=== PATIENT | male | born 1955 | race Caucasian/White ===

== ENCOUNTER → 2016-10-11 | Outpatient (REF) ==
[~2016-10-11] MED LIST: CASODEX 50MG TA50 MG PO; COLACE 100100 MG/CAP PO; FLEXERIL 1010 MG/TAB PO; NORCO 325 MG-51 TAB PO
== END ==
LOC: ZLAB.WCH 12:05
DX: Z01.89 Encounter for other specified special examinations (principal)
CPT/HCPCS: G0103

== ENCOUNTER → 2016-10-28 | Outpatient (CLI) | payer MEDICAID, OTHER | LOC: COL.RAD 09:08 | DX: C61 Malignant neoplasm of prostate (principal); R59.0 Localized enlarged lymph nodes; C79.51 Secondary malignant neoplasm of bone | CPT/HCPCS: A9503; Q9967 ==

== ENCOUNTER 2016-11-13 12:42 | Day surgery (SDC) | payer MEDICAID ==
[~2016-11-13] VITALS: Ht 172.7 cm; Wt 57.0 kg
[2016-11-13] MEDS ORDERED: FLEXERIL 1010 MG/TAB PO (13:20)
[2016-11-13] MEDS ORDERED: CASODEX 50MG TA50 MG PO (13:21)
[2016-11-13] MEDS ORDERED: NORCO 325 MG-51 TAB PO (13:22)
[2016-11-13 13:46] VITALS: BP 143/95; PULSE 91; TEMP 97.7
[2016-11-13 15:55] VITALS: BP 125/82; PULSE 88; TEMP 98.5
[2016-11-13] MEDS ORDERED: COLACE 100100 MG/CAP PO (15:59)
[2016-11-13 16:05] VITALS: BP 137/83; PULSE 76
[2016-11-13 16:20] VITALS: BP 152/84; PULSE 75
== END 2016-11-13 16:50 | disposition home or self-care (01) ==
LOC: SDCO 12:42
DX: C61 Malignant neoplasm of prostate (principal); C79.89 Secondary malignant neoplasm of other specified sites; C79.51 Secondary malignant neoplasm of bone; R39.12 Poor urinary stream; R39.16 Straining to void; J44.9 Chronic obstructive pulmonary disease, unspecified; Z80.0 Family history of malignant neoplasm of digestive organs; Z80.7 Family history of other malignant neoplasms of lymphoid, hematopoietic and related tissues; R20.0 Anesthesia of skin; R63.4 Abnormal weight loss; Z68.1 Body mass index [BMI] 19.9 or less, adult; F17.290 Nicotine dependence, other tobacco product, uncomplicated
CPT/HCPCS: J1100; J1885; J2270; J2405; J2704; J3010; J7030

== ENCOUNTER → 2017-01-06 | Outpatient (REF) | LOC: ZLAB.WCH 18:04 | DX: Z01.89 Encounter for other specified special examinations (principal) | CPT/HCPCS: G0103 ==

== ENCOUNTER → 2017-02-10 | Outpatient (REF) | LOC: ZLAB.WCH 20:25 | DX: Z01.89 Encounter for other specified special examinations (principal) | CPT/HCPCS: G0103 ==

== ENCOUNTER 2017-06-17 11:00 | Emergency (ER) | payer MEDICAID ==
[~2017-06-17] VITALS: Ht 170.2 cm; Wt 59.1 kg
[2017-06-17 11:06] VITALS: TEMP 97.8
[2017-06-17 11:28] LABS: MEAN CELL VOLUME 92 fl (80.0-100.0); MEAN CORPUSCULAR HGB CONC 34 g/dl (33.0-37.0); PLATELET COUNT 277 K/mm3 (130-400); RED BLOOD COUNT 3.59 M/mm3 (4.20-5.60); REDCELL DISTRIBUTION WIDTH-CV 13.4 % (11.5-14.5)
[2017-06-17] MEDS ORDERED: ASPIRIN 32325 MG/TAB PO (11:29)
[2017-06-17] MEDS ORDERED: ZOFRAN 4MG T4 MG/TAB PO (11:29)
[2017-06-17 11:42] LABS: HEMATOCRIT 33.1 % (42.0-52.0); HEMOGLOBIN 11.2 g/dl (13.5-18.0); MEAN CORPUSCULAR HEMOGLOBIN 31 pg (27.0-31.0)
[2017-06-17 11:50] LABS: ALBUMIN 3.7 gm/dL (3.5-5.0); BILIRUBIN,TOTAL 0.5 mg/dL (0.0-1.0); CALCIUM 8.9 mg/dL (8.4-10.2); CREATININE, serum 0.63 mg/dL (0.66-1.25); MAGNESIUM 2.1 mg/dL (1.6-2.3); PHOSPHOROUS 2.3 mg/dL (2.5-4.5); POTASSIUM 4.3 mmol/L (3.4-5.0); TOTAL PROTEIN 7.1 gm/dL (6.4-8.2)
[2017-06-17 12:02] LABS: BAND 11 % (0-10); EOSINOPHIL 3 % (0-4); LYMPHOCYTE 15 % (20.0-51.0); MYELOCYTE 1 % (0-0); NEUTROPHILS 65 % (42.0-75.2)
[2017-06-17 12:03] LABS: PLATELET ESTIMATE NORMAL (NORMAL); POLYCHROMASIA 1+; STOMATOCYTE 1+
[2017-06-17 13:34] LABS: COLLECTION METHOD CLEAN CATCH
[2017-06-17 13:43] LABS: PH 7 (5-8); SQUAMOUS EPITHELIAL 0-2 /hpf; URINE APPEARANCE Clear; URINE BACTERIA None Seen /hpf; URINE BILIRUBIN Negative (NEGATIVE); URINE BLOOD Negative (NEGATIVE); URINE COLOR Yellow; URINE GLUCOSE Negative (NEGATIVE); URINE KETONE 1+ (NEGATIVE); URINE LEUKOCYTE ESTERASE Negative (NEGATIVE); URINE NITRATE Negative (NEGATIVE); URINE PROTEIN(semi-quant) Negative (NEGATIVE); URINE RBC 0-2 /hpf
[2017-06-17] MEDS ORDERED: LEVAQUIN 5500 MG/TA1 PO (15:44)
[2017-06-17] MEDS ORDERED: ZOFRAN ODT4 MG PO (15:45)
[2017-06-17] MEDS ORDERED: PERCOCET 325 MG1 TA3 PO (15:45)
[2017-06-17 16:03] VITALS: BP 123/76; PULSE 106
== END 2017-06-17 16:05 | disposition home or self-care (01) ==
LOC: COL.ER 11:00
PROVIDERS: Emergency Medicine
DX: C61 Malignant neoplasm of prostate (principal); C79.51 Secondary malignant neoplasm of bone; F17.210 Nicotine dependence, cigarettes, uncomplicated; Z79.82 Long term (current) use of aspirin
CPT/HCPCS: J1170; J7030; Q9967

== ENCOUNTER → 2017-07-21 | Outpatient (CLI) | payer MEDICAID ==
[~2017-07-21] MED LIST changes: +ASPIRIN 32325 MG/TAB PO; +LEVAQUIN 5500 MG/TA1 PO; +PERCOCET 325 MG1 TA3 PO; +ZOFRAN 4MG T4 MG/TAB PO; +ZOFRAN ODT4 MG PO
== END ==
LOC: COL.RAD 09:23
DX: C79.51 Secondary malignant neoplasm of bone (principal); C61 Malignant neoplasm of prostate; R59.1 Generalized enlarged lymph nodes
CPT/HCPCS: A9503; Q9967

== ENCOUNTER 2017-08-01 11:56 | Outpatient (RCR) | payer MEDICAID ==
[2017-08-01] VITALS (7 sets, daily range): BP systolic 100–111; BP diastolic 60–71; PULSE 83–105; TEMP 97.8
[~2017-08-01] VITALS: Ht 170.2 cm; Wt 76.8 kg
== END 2017-08-01 16:30 | disposition home or self-care (01) ==
LOC: EUO 11:56
DX: C61 Malignant neoplasm of prostate (principal)
CPT/HCPCS: J7050; P9016

== ENCOUNTER 2017-08-07 11:55 | Outpatient (RCR) | payer MEDICAID ==
[2017-08-07] VITALS (9 sets, daily range): BP systolic 107–116; BP diastolic 61–69; PULSE 90–95; TEMP 97.7
[2017-08-07] MEDS ORDERED: NORCO 325 MG-101 TAB PO (12:54)
[2017-08-07] MEDS ORDERED: XTANDI40 MG PO (12:55)
[2017-08-07] MEDS ORDERED: MIRALAX PA17 GM/Dose PO (12:56)
[2017-08-07] MEDS ORDERED: CALCIUM 600MG+D1 TAB PO (12:57)
[2017-08-07] MEDS ORDERED: IRON TABLETS325 MG PO (12:58)
[2017-08-07] MEDS ORDERED: IMODIUM 2MG CAPS2 MG PO (12:58)
== END 2017-08-07 16:39 | disposition home or self-care (01) ==
LOC: EUO 11:55
DX: C61 Malignant neoplasm of prostate (principal); D69.6 Thrombocytopenia, unspecified
CPT/HCPCS: J7050; P9016; P9037